=== PATIENT | male | born 1955 | race Caucasian/White ===

== ENCOUNTER 2022-08-25 16:02 | Observation (INO) | payer BC, MEDICARE ==
[2022-08-25] MEDS ORDERED: SODIUM CHLORIDE 0.9% 1,000 ML IV STA ×2 (16:38→19:53)
[2022-08-25] MEDS ORDERED: KETOROLAC 15 MG/ML 1 ML VIAL IVP STA (16:42)
[2022-08-25 18:00] LABS: Basophils % (A) 0 %; Eosinophils # (A) 0.1 k/uL (0-0.7); Eosinophils % (A) 1 %; HCT 45.7 % (39.0-53.0); HGB 15.4 gm/dL (13.0-17.5); Lymphocytes # (A) 1.2 k/uL (1.0-4.8); Lymphocytes % (A) 13 %; MCH 29.9 pg (25.0-35.0); MCHC 33.8 g/dL (31.0-37.0); MCV 88.7 fL (80.0-100.0); Monocytes # (A) 0.6 k/uL (0-1.0); Monocytes % (A) 7 %; Neutrophils # (A) 7.1 k/uL (1.3-7.7); Neutrophils % (A) 77 %; Platelet Count 183 k/uL (150-450); RBC 5.16 m/uL (4.30-5.90); RDW 12.4 % (11.5-15.5); WBC 9.2 k/uL (3.8-10.6)
[2022-08-25 18:14] LABS: Albumin 4.2 g/dL (3.5-5.0); Calcium 8.9 mg/dL (8.4-10.2); Potassium 4.3 mmol/L (3.5-5.1); Total Bilirubin 0.8 mg/dL (0.2-1.3); Total Protein 6.9 g/dL (6.3-8.2)
[2022-08-25 18:22] LABS: Appearance,Urine Clear (Clear); Bilirubin,Urine Negative (Negative); Blood,Urine Negative (Negative); Color,Urine Light Yellow; Glucose,Urine (UA) Negative (Negative); Ketones,Urine Negative (Negative); Leukocyte Esterase,Urine Negative (Negative); Nitrite,Urine Negative (Negative); PH, Urine 5.5 (5.0-8.0); Protein,Urine Negative (Negative); Specific Gravity,Urine 1.015 (1.001-1.035); Urobilinogen,Urine <2.0 mg/dL (<2.0)
--- NOTE | 2022-08-25 18:52 | CT ---
EXAMINATION TYPE: CT abdomen pelvis wo con CT DLP: 638.3 mGycm, Automated exposure control for dose reduction was used. DATE OF EXAM: 08/25/2022 6:06 PM COMPARISON: None CLINICAL INDICATION:Male, 67 years old with history of right flank pain; right side abd pain TECHNIQUE: Axial CT of the abdomen and pelvis. Sagittal and coronal reformats were created on a [employer] workstation. Contrast used: None Oral contrast used: without Oral Contrast FINDINGS: LOWER CHEST: Unremarkable ABDOMEN LIVER: Unremarkable GALLBLADDER AND BILE DUCTS: Unremarkable. PANCREAS: Unremarkable. SPLEEN: Unremarkable. ADRENAL GLANDS: Unremarkable. KIDNEYS AND URETERS: Nonobstructing renal calculi bilaterally measuring 4 mm in the right and up to 5 mm on the left. No obstructive uropathy. PELVIS BLADDER: Unremarkable REPRODUCTIVE: Prostate gland is enlarged measuring up to 5.2 cm in transverse dimension ABDOMEN & PELVIS STOMACH AND BOWEL: No evidence of bowel obstruction. Appendix is dilated measuring up to 8 mm with ad jacent fat stranding. PERITONEUM/RETROPERITONEUM: No evidence of pneumoperitoneum or free fluid. VASCULATURE: No evidence of aortic aneurysm. MUSCULOSKELETAL: No acute osseous abnormalities, mild scoliosis changes of the spine. There is disc d egeneration changes throughout the spine. L2 vertebral body hemangioma. LYMPH NODES: No gross evidence for lymphadenopathy. SOFT TISSUE/ABDOMINAL WALL: Fat-containing umbilical hernia. Fat-containing bilateral inguinal hernia s left greater than right. IMPRESSION: 1. Acute uncomplicated appendicitis. No organizing fluid collection no evidence perforation. 2. Bilateral obstructing renal calculi. 3. Prostatomegaly correlate serum PSA. 4. Bilateral fat-containing inguinal hernias and affecting umbilical hernia.
[2022-08-25] MEDS ORDERED: PIPERACILLIN-TAZOBACTAM 3.375 GM in SODIUM CHLORIDE 0.9% 100 ML IVPB STA (18:56)
[2022-08-25] MEDS ORDERED: NALOXONE 0.4 MG/ML 1 ML VIAL IV PRN (19:29)
--- NOTE | 2022-08-25 21:23 | ED ---
Abdominal Pain HPI - General Chief Complaint: Abdominal Pain Stated Complaint: abd pain Time Seen by Provider: 08/25/22 16:36 Source: patient Mode of arrival: ambulatory Limitations: no limitations - History of Present Illness Initial Comments: Patient is a 67-year-old male was emergency department for abdominal pain. Patient reports a very mild pain in his right lower abdomen and right lower side which has intermittently been occurring today. He denies any nausea and vomiting. No fever or chills. No burning with urination, blood in the urine. Patient has history of hernia repair. - Related Data Home Medications Medication Instructions Recorded Confirmed Losartan Potassium 100 mg PO DAILY 08/25/22 08/25/22 Allergies Allergy/AdvReac Type Severity Reaction Status Date / Time No Known Allergies Allergy Verified 08/25/22 17:09 Review of Systems ROS Statement: Those systems with pertinent positive or pertinent negative responses have been documented in the HPI. ROS Other: All systems not noted in ROS Statement are negative. Past Medical History Past Medical History: No Reported History History of Any Multi-Drug Resistant Organisms: None Reported Past Surgical History: Hernia Repair Past Psychological History: No Psychological Hx Reported Smoking Status: Never smoker Past Alcohol Use History: Occasional Past Drug Use History: None Reported General Exam Limitations: no limitations Head exam: Present: atraumatic, normocephalic, normal inspection Eye exam: Present: normal appearance, PERRL, EOMI. Absent: scleral icterus, conjunctival injection, periorbital swelling ENT exam: Present: normal exam, mucous membranes moist Respiratory exam: Present: normal lung sounds bilaterally. Absent: respiratory distress, wheezes, rales, rhonchi, stridor Cardiovascular Exam: Present: regular rate, normal rhythm, normal heart sounds. Absent: systolic murmur, diastolic murmur, rubs, gallop, clicks GI/Abdominal exam: Present: soft, tenderness (mild RLQ), normal bowel sounds. Absent: distended, guarding, rebound, rigid Neurological exam: Present: alert, oriented X3, CN II-XII intact Psychiatric exam: Present: normal affect, normal mood Skin exam: Present: warm, dry, intact, normal color. Absent: rash Course Vital Signs 08/25/22 16:28 Temperature 99.0 F Pulse Rate 89 Respiratory 20 Rate Blood Pressure 132/80 O2 Sat by Pulse 98 Oximetry Medical Decision Making - Medical Decision Making Was pt. sent in by a medical professional or institution (KARLENE Hines, NEEDLE SETTER, urgent care, hospital, or jail...) When possible be specific @ -[No] Did you speak to anyone other than the patient for history (EMS, parent, family, police, friend...)? What history was obtained from this source @ -[No] Did you review nursing and triage notes (agree or disagree)? Why? @ -[I reviewed and agree with nursing and triage notes] Were old charts reviewed (outside hosp., previous admission, EMS record, old EKG, old radiological studies, urgent care reports/EKG's, jail records)? Report findings @ -[No old charts were reviewed] Differential Diagnosis (chest pain, altered mental status, abdominal pain women, abdominal pain men, vaginal bleeding, weakness, fever, dyspnea, syncope, headache, dizziness, GI bleed, back pain, seizure, CVA, palpatations, mental health)? @ -Differential Abdominal Pain Men: Appendicitis, cholecystitis, diverticulosis, ischemic bowel, pancreatitis, hepatitis, UTI, gastroenteritis, AAA, incarcerated hernia, bowel obstruction, constipation, inflammatory bowel, hepatitis, peptic ulcer disease, splenic infarction, perforated viscus, testicular torsion, this is not meant to be an all-inclusive list EKG interpreted by me (3pts min.). @ -[As above] X-rays interpreted by me (1pt min.). @ -[None done] CT interpreted by me (1pt min.). @ -Yes, CT shows acute appendicitis without abscess or perforation U/S interpreted by me (1pt. min.). @ -[None done] What testing was considered but not performed or refused? (CT, X-rays, U/S, labs)? Why? @ -[None] What meds were considered but not given or refused? Why? @ -[None] Did you discuss the management of the patient with other professionals (professionals i.e. KARLENE Hines, NEEDLE SETTER, lab, RT, psych nurse, secondary social studies teacher, pit recorder, teacher, senior escrow officer, gym manager)? Give summary @ -[No] Was smoking cessation discussed for >3mins.? @ -[No] Was critical care preformed (if so, how long)? @ -[No] Were there social determinants of health that impacted care today? How? (Homelessness, low income, unemployed, alcoholism, drug addiction, transportation, low edu. Level, literacy, decrease access to med. care, senior care, rehab)? @ -[No] Was there de-escalation of care discussed even if they declined (Discuss DNR or withdrawal of care, Hospice)? DNR status @ -[No] What co-morbidities impacted this encounter? (DM, HTN, Smoking, COPD, CAD, Cancer, CVA, ARF, Chemo, Hep., AIDS, mental health diagnosis, sleep apnea, morbid obesity)? @ -[None] Was patient admitted / discharged? Hospital course, mention meds given and route, prescriptions, significant lab abnormalities, going to OR and other pertinent info. @ -Patient presenting with right lower quadrant and right flank pain. Afebrile. No vomiting. Laboratory studies obtained. No leukocytosis. CT does show evidence of acute appendicitis without perforation or abscess. Patient started on IV Zosyn and he will be admitted to Dr. Ashton who accepts admission Undiagnosed new problem with uncertain prognosis? @ -[No] Drug Therapy requiring intensive monitoring for toxicity (Heparin, Nitro, Insulin, Cardizem)? @ -[No] Were any procedures done? @ -[No] Diagnosis/symptom? @ -Appendicitis Acute, or Chronic, or Acute on Chronic? @ -[Acute Uncomplicated (without systemic symptoms) or Complicated (systemic symptoms)? @ Uncomplicated Side effects of treatment? @ -[No] Exacerbation, Progression, or Severe Exacerbation? @ -[No] Poses a threat to life or bodily function? How? (Chest pain, USA, CA, pneumonia, PE, COPD, DKA, ARF, appy, cholecystitis, CVA, Diverticulitis, Homicidal, Suicidal, threat to staff... and all critical care pts) @ -[No] Dr. Quinones my attending - Lab Data Result diagrams: 08/25/22 17:35 08/25/22 17:35 Lab Results 08/25/22 08/25/22 08/25/22 Range/Units 17:35 17:35 17:35 WBC 9.2 (3.8-10.6) k/uL RBC 5.16 (4.30-5.90) m/uL Hgb 15.4 (13.0-17.5) gm/dL Hct 45.7 (39.0-53.0) % MCV 88.7 (80.0-100.0) fL MCH 29.9 (25.0-35.0) pg MCHC 33.8 (31.0-37.0) g/dL RDW 12.4 (11.5-15.5) % Plt Count 183 (150-450) k/uL MPV 7.0 Neutrophils % 77 % Lymphocytes % 13 % Monocytes % 7 % Eosinophils % 1 % Basophils % 0 % Neutrophils # 7.1 (1.3-7.7) k/uL Lymphocytes # 1.2 (1.0-4.8) k/uL Monocytes # 0.6 (0-1.0) k/uL Eosinophils # 0.1 (0-0.7) k/uL Basophils # 0.0 (0-0.2) k/uL Sodium 139 (137-145) mmol/L Potassium 4.3 (3.5-5.1) mmol/L Chloride 105 (98-107) mmol/L Carbon Dioxide 27 (22-30) mmol/L Anion Gap 7 mmol/L BUN 21 H (9-20) mg/dL Creatinine 1.27 H (0.66-1.25) mg/dL Est GFR (CKD-EPI)AfAm 67 (>60 ml/min/1.73 sqM) Est GFR (CKD-EPI)NonAf 58 (>60 ml/min/1.73 sqM) Glucose 109 H (74-99) mg/dL Plasma Lactic Acid Randy 0.9 (0.7-2.0) mmol/L Calcium 8.9 (8.4-10.2) mg/dL Total Bilirubin 0.8 (0.2-1.3) mg/dL AST 23 (17-59) U/L ALT 22 (4-49) U/L Alkaline Phosphatase 61 (38-126) U/L Total Protein 6.9 (6.3-8.2) g/dL Albumin 4.2 (3.5-5.0) g/dL Lipase 53 (23-300) U/L Urine Color Urine Appearance (Clear) Urine pH (5.0-8.0) Ur Specific [place] (1.001-1.035) Urine Protein (Negative) Urine Glucose (UA) (Negative) Urine Ketones (Negative) Urine Blood (Negative) Urine Nitrite (Negative) Urine Bilirubin (Negative) Urine Urobilinogen (<2.0) mg/dL Ur Leukocyte Esterase (Negative) 08/25/22 Range/Units 18:10 WBC (3.8-10.6) k/uL RBC (4.30-5.90) m/uL Hgb (13.0-17.5) gm/dL Hct (39.0-53.0) % MCV (80.0-100.0) fL MCH (25.0-35.0) pg MCHC (31.0-37.0) g/dL RDW (11.5-15.5) % Plt Count (150-450) k/uL MPV Neutrophils % % Lymphocytes % % Monocytes % % Eosinophils % % Basophils % % Neutrophils # (1.3-7.7) k/uL Lymphocytes # (1.0-4.8) k/uL Monocytes # (0-1.0) k/uL Eosinophils # (0-0.7) k/uL Basophils # (0-0.2) k/uL Sodium (137-145) mmol/L Potassium (3.5-5.1) mmol/L Chloride (98-107) mmol/L Carbon Dioxide (22-30) mmol/L Anion Gap mmol/L BUN (9-20) mg/dL Creatinine (0.66-1.25) mg/dL Est GFR (CKD-EPI)AfAm (>60 ml/min/1.73 sqM) Est GFR (CKD-EPI)NonAf (>60 ml/min/1.73 sqM) Glucose (74-99) mg/dL Plasma Lactic Acid Randy (0.7-2.0) mmol/L Calcium (8.4-10.2) mg/dL Total Bilirubin (0.2-1.3) mg/dL AST (17-59) U/L ALT (4-49) U/L Alkaline Phosphatase (38-126) U/L Total Protein (6.3-8.2) g/dL Albumin (3.5-5.0) g/dL Lipase (23-300) U/L Urine Color Light Yellow Urine Appearance Clear (Clear) Urine pH 5.5 (5.0-8.0) Ur Specific [place] 1.015 (1.001-1.035) Urine Protein Negative (Negative) Urine Glucose (UA) Negative (Negative) Urine Ketones Negative (Negative) Urine Blood Negative (Negative) Urine Nitrite Negative (Negative) Urine Bilirubin Negative (Negative) Urine Urobilinogen <2.0 (<2.0) mg/dL Ur Leukocyte Esterase Negative (Negative) Disposition Clinical Impression: Appendicitis Disposition: ADMITTED IP TO THIS HOSP Condition: Stable
[2022-08-25] MEDS: MORPHINE SULFATE 2 MG/ML SYRINGE IVP PRN (21:30)
[2022-08-26] MEDS: PIPERACILLIN-TAZOBACTAM 3.375 GM in SODIUM CHLORIDE 0.9% 100 ML IVPB SCH ×3 (08:30→23:46)
[2022-08-26] MEDS: LOSARTAN 50 MG TAB PO SCH (08:30)
[2022-08-26 09:15] LABS: HCT 40.4 % (39.0-53.0); HGB 14.2 gm/dL (13.0-17.5); MCH 30.9 pg (25.0-35.0); MCHC 35.2 g/dL (31.0-37.0); MCV 87.7 fL (80.0-100.0); Mean Platelet Volume 7.3; Platelet Count 147 k/uL (150-450); RBC 4.61 m/uL (4.30-5.90); RDW 12.7 % (11.5-15.5)
[2022-08-26 09:22] LABS: Partial Thromboplastin Time 26.5 sec (22.0-30.0); Prothrombin Time 10.2 sec (9.0-12.0)
[2022-08-26 09:48] LABS: African American GFR (CKD) 80 (>60 ml/min/1.73 sqM); Anion Gap 3 mmol/L; Blood Urea Nitrogen 18 mg/dL (9-20); Calcium 8.2 mg/dL (8.4-10.2); Carbon Dioxide 25 mmol/L (22-30); Chloride 110 mmol/L (98-107); Glucose 87 mg/dL (74-99); Non-African American GFR(CKD) 69 (>60 ml/min/1.73 sqM); Potassium 4.1 mmol/L (3.5-5.1); Sodium 138 mmol/L (137-145)
--- NOTE | 2022-08-26 11:23 | P.GSHP ---
History of Present Illness H&P Date: 08/26/22 Chief Complaint: acute appendicitis Working yesterday & developed sudden onset abdominal pain. Progressively worsened & started to localize to the RLQ. CT done & revealed acute appendicitis. No leukocytosis. On exam this morning, continues to have tenderness to RLQ but pain well managed overnight. - Constitutional Constitutional: Reports as per HPI - EENT Ears: deny: decreased hearing Ears, nose, mouth and throat: Reports as per HPI - Cardiovascular Comment: sees Cardiology Cardiovascular: Reports as per HPI, Reports high blood pressure, Denies chest pain, Denies irregular heart beat - Respiratory Comment: former smoker, has 5 pack a day history; quit 2 years ago Respiratory: Reports as per HPI - Gastrointestinal Gastrointestinal: Reports as per HPI, Reports abdominal pain (RLQ) - Genitourinary (Male) Genitourinary: Reports as per HPI - Musculoskeletal Comment: chronic knee pain; right knee replacement x2, left knee replacement x1 Musculoskeletal: Reports as per HPI, Reports arm numbness/tingling, Reports leg numbness/tingling - Integumentary Integumentary: Reports as per HPI - Neurological Neurological: Reports as per HPI - Psychiatric Psychiatric: Reports as per HPI - Endocrine Endocrine: Reports as per HPI, Denies high blood sugars - Hematologic/Lymphatic Hematologic/Lymphatic: Reports as per HPI - Allergic/Immunologic Allergic/Immunologic: Reports as per HPI Past Medical History Past Medical History: Hypertension History of Any Multi-Drug Resistant Organisms: None Reported Past Surgical History: Hernia Repair Additional Past Surgical History / Comment(s): vasectomy Past Anesthesia/Blood Transfusion Reactions: No Reported Reaction Past Psychological History: No Psychological Hx Reported Smoking Status: Never smoker Past Alcohol Use History: Occasional Past Drug Use History: None Reported Medications and Allergies Home Medications Medication Instructions Recorded Confirmed Type Losartan Potassium 100 mg PO DAILY 08/25/22 08/25/22 History Allergies Allergy/AdvReac Type Severity Reaction Status Date / Time No Known Allergies Allergy Verified 08/25/22 17:09 Surgical - Exam Vital Signs Temp Pulse Resp BP Pulse Ox 99.0 F 89 20 132/80 98 08/25/22 16:28 08/25/22 16:28 08/25/22 16:28 08/25/22 16:28 08/25/22 16:28 - General well developed, well nourished, no distress - Eyes no icteric - ENT normal mucosa, no decreased hearing - Neck supple - Respiratory normal expansion, normal respiratory effort, clear to auscultation - Cardiovascular Rhythm: regular Abnormal Heart Sounds: no systolic murmur, no diastolic murmur - Abdomen Abdomen: soft, tender (focal TTP to RLQ; no diffuse peritonitis), no guarding, no rigid, no rebound, no distended - Integumentary no rash - Neurologic no gross deficits - Musculoskeletal no LE edema, deformities - Psychiatric alert & oriented, normal affect; appropriate insight & judgment Results - Labs 08/26/22 08:41 08/26/22 08:41 Abnormal Lab Results - Last 24 Hours (Table) 08/25/22 Range/Units 17:35 BUN 21 H (9-20) mg/dL Creatinine 1.27 H (0.66-1.25) mg/dL Glucose 109 H (74-99) mg/dL Diabetes panel 08/25/22 Range/Units 17:35 Sodium 139 (137-145) mmol/L Potassium 4.3 (3.5-5.1) mmol/L Chloride 105 (98-107) mmol/L Carbon Dioxide 27 (22-30) mmol/L BUN 21 H (9-20) mg/dL Creatinine 1.27 H (0.66-1.25) mg/dL Glucose 109 H (74-99) mg/dL Calcium 8.9 (8.4-10.2) mg/dL AST 23 (17-59) U/L ALT 22 (4-49) U/L Alkaline Phosphatase 61 (38-126) U/L Total Protein 6.9 (6.3-8.2) g/dL Albumin 4.2 (3.5-5.0) g/dL Calcium panel 08/25/22 Range/Units 17:35 Calcium 8.9 (8.4-10.2) mg/dL Albumin 4.2 (3.5-5.0) g/dL Pituitary panel 08/25/22 Range/Units 17:35 Sodium 139 (137-145) mmol/L Potassium 4.3 (3.5-5.1) mmol/L Chloride 105 (98-107) mmol/L Carbon Dioxide 27 (22-30) mmol/L BUN 21 H (9-20) mg/dL Creatinine 1.27 H (0.66-1.25) mg/dL Glucose 109 H (74-99) mg/dL Calcium 8.9 (8.4-10.2) mg/dL Adrenal panel 08/25/22 Range/Units 17:35 Sodium 139 (137-145) mmol/L Potassium 4.3 (3.5-5.1) mmol/L Chloride 105 (98-107) mmol/L Carbon Dioxide 27 (22-30) mmol/L BUN 21 H (9-20) mg/dL Creatinine 1.27 H (0.66-1.25) mg/dL Glucose 109 H (74-99) mg/dL Calcium 8.9 (8.4-10.2) mg/dL Total Bilirubin 0.8 (0.2-1.3) mg/dL AST 23 (17-59) U/L ALT 22 (4-49) U/L Alkaline Phosphatase 61 (38-126) U/L Total Protein 6.9 (6.3-8.2) g/dL Albumin 4.2 (3.5-5.0) g/dL - Imaging CT scan - abdomen: report reviewed, image reviewed CT scan - pelvis: report reviewed, image reviewed Assessment and Plan Assessment: abdominal pain 2/2 acute appendicitis Hx HTN Plan: to OR for laparoscopic appendectomy, possible open likely clears post-op with anticipated discharge in next 24 hours Time with Patient: Less than 30
[2022-08-26] MEDS ORDERED: IV FLUID CONTINUATION 300 ML IV ONE (11:56)
[2022-08-26] MEDS ORDERED: PROPOFOL 10 MG/ML 20 ML VIAL IV ONE (12:30)
[2022-08-26] MEDS ORDERED: NEOSTIGMINE 1 MG/ML 10 ML VIAL ONE (12:30)
[2022-08-26] MEDS ORDERED: ROCURONIUM 10 MG/ML (5 ML VIAL) IV ONE (12:30)
[2022-08-26] MEDS ORDERED: LIDOCAINE 2% INJ 20 MG/ML (2 ML VIAL) ONE (12:30)
[2022-08-26] MEDS ORDERED: fentaNYL (PF) 50 MCG/ML 2 ML AMP ONE (12:30)
[2022-08-26] MEDS ORDERED: GLYCOPYRROLATE 0.2 MG/ML 2 ML VIAL ONE (12:30)
[2022-08-26] MEDS ORDERED: MIDAZOLAM 2 MG/2 ML VIAL ONE (12:30)
[2022-08-26] MEDS ORDERED: PHENYLEPHRINE-0.9% NACL SYG 1,000 MCG/10 ML SYRINGE ONE (12:30)
[2022-08-26] MEDS ORDERED: SUCCINYLCHOLINE CHLORIDE 200 MG/10 ML VIAL IV ONE (12:30)
[2022-08-26] MEDS ORDERED: BUPIVACAIN-EPI 0.25%-1:200,000 30 ML VIAL SQ ONE ×2 (13:04)
[2022-08-26] MEDS: SODIUM CHLORIDE 0.9% 1,000 ML IV SCH ×2 (13:31→17:55)
--- NOTE | 2022-08-26 14:18 | P.OP ---
Date of Procedure: 08/26/22 Preoperative Diagnosis: acute appendicitis Postoperative Diagnosis: acute appendicitis Procedure(s) Performed: laparoscopic appendectomy Anesthesia: GETA Surgeon: Lo Ashton Estimated Blood Loss (ml): 10 Pathology: other (appendix) Condition: stable Disposition: PACU Indications for Procedure: acute appendicitis noted on CT Operative Findings: Acutely inflamed appendix with adherent to the cecum with mesoappendix. Isolated & stapled at the base of the appendix/cecum. No perforation or abscess cavity. Appendix with some beginning necrotic changes but no overt perforation or gangrene. Description of Procedure: See complete dictation for full surgical details.
[2022-08-26] MEDS ORDERED: IBUPROFEN 600 MG TAB PO PRN (14:21)
[2022-08-26] MEDS ORDERED: HYDROcodone/APAP 5-325MG 1 EACH TAB PO PRN (14:21)
[2022-08-26] MEDS: HEPARIN SODIUM,PORCINE/PF 5,000 UNIT/0.5 ML SYRINGE SQ SCH ×2 (17:49→23:47)
[2022-08-26] MEDS: MORPHINE SULFATE 2 MG/ML SYRINGE IVP PRN ×2 (17:50→21:05)
--- NOTE | 2022-08-26 22:37 | P.CONS ---
History of Present Illness - Reason for Consult Consult date: 08/26/22 Medical management - Chief Complaint Abdominal pain - History of Present Illness Patient is a 67-year-old male with a known history of hypertension presents today with complaints of abdominal pain. Patient states that he started having right lower quadrant abdominal pain intermittently for the past 2 days. Otherwise denies any complaints of nausea or vomiting or diarrhea. No fever no chills. Patient searched online and came to ER for possible appendicitis. CT of the abdomen pelvis done in the ER showed acute uncomplicated appendicitis. No organizing fluid collection no evidence of perforation. Bilateral obstructing renal calculi. Prostamegaly correlate for serum PSA Bilateral fat-containing inguinal hernias and affecting umbilical hernia. Laboratory showed WBC 9.2 hemoglobin 15.4 and platelets 183 Sodium 139 potassium 4.3 chloride 105 bicarb is 27 BUN 21 and creatinine 1.27 and blood sugar is 109 and lactic acid 0.9 urinalysis negative for infection Review of Systems Constitutional: Patient denies any fever or chills . no Generalized weakness. Abdomen: Patient denied any nausea or vomiting . RLQ abd. pain Cardiovascular: Patient denies any chest pain or short of breath no palpitations. Respiratory: patient denied any cough . no sputum production. No shortness of breath Neurologic: Patient denied any numbness or tingling headache. Musculoskeletal: Patient denies any complaints of joint swelling or deformity. Skin: Negative Psychiatric: Negative Endocrine: No heat or cold intolerance. No recent weight gain. Genitourinary: No dysuria or hematuria. All other 14 point ROS negative except the above Past Medical History Past Medical History: Hypertension History of Any Multi-Drug Resistant Organisms: None Reported Past Surgical History: Hernia Repair Additional Past Surgical History / Comment(s): vasectomy Past Anesthesia/Blood Transfusion Reactions: No Reported Reaction Past Psychological History: No Psychological Hx Reported Smoking Status: Never smoker Past Alcohol Use History: Occasional Past Drug Use History: None Reported Medications and Allergies Home Medications Medication Instructions Recorded Confirmed Type Losartan Potassium 100 mg PO DAILY 08/25/22 08/25/22 History Allergies Allergy/AdvReac Type Severity Reaction Status Date / Time No Known Allergies Allergy Verified 08/25/22 17:09 Physical Exam Vitals: Vital Signs Temp Pulse Pulse Resp BP BP Pulse Ox 08/26/22 07:50 99.1 F 76 18 144/75 95 08/26/22 02:11 98.8 F 76 16 129/69 93 L 04/14/23 22:15 98.1 F 75 16 154/79 93 L 08/25/22 21:31 78 122/92 95 08/25/22 16:28 99.0 F 89 20 132/80 98 Intake and Output 08/25/22 08/26/22 08/26/22 22:59 06:59 14:59 Intake Total 0 Balance 0 Intake: Oral 0 Other: Voiding Method Toilet Weight 79.5 kg PHYSICAL EXAMINATION: Patient is lying in the bed comfortably, no acute distress, awake alert and oriented.. HEENT: Normocephalic. Neck is supple. Pupils reactive. Nostrils clear. Oral cavity is moist. Neck reveals no JVD, carotid bruits, or thyromegaly. CHEST EXAMINATION: Trachea is central. Symmetrical expansion. Lung caldera clear to auscultation and percussion. CARDIAC: Normal S1, S2 with no gallops. No murmurs ABDOMEN: Soft. Bowel sounds present. mild RLQ tender. No organomegaly. No abdominal bruits. Extremities: reveal no edema. No clubbing or cyanosis Neurologically awake, alert, oriented x3 with well-coordinated movements. No focal deficits noted Skin: No rash or skin lesions. Psychiatric: Coperative. Nonsuicidal, Musculoskeletal: No joint swelling or deformity. Normal range of motion. Results CBC & Chem 7: 08/26/22 08:41 08/26/22 08:41 Labs: Abnormal Lab Results - Last 24 Hours (Table) 08/25/22 08/26/22 08/26/22 Range/Units 17:35 08:41 08:41 Plt Count 147 L (150-450) k/uL Chloride 110 H (98-107) mmol/L BUN 21 H (9-20) mg/dL Creatinine 1.27 H (0.66-1.25) mg/dL Glucose 109 H (74-99) mg/dL Calcium 8.2 L (8.4-10.2) mg/dL Assessment and Plan Assessment: Acute uncomplicated appendicitis Abdominal pain secondary to above Bilateral obstructing renal calculi. Outpatient urology follow-up. Inguinal hernias affecting umbilical area. Hypertension Acute kidney injury likely prerenal improving. GI and DVT prophylaxis Plan: Patient will be continued on IV hydration continue pain management. Empiric antibiotics in the form of Zosyn. General surgery is planning for appendectomy today. Follow-up CBC and BMP tomorrow. Follow closely and further recommendations based on the clinical course. Thank you for your consult. Time with Patient: Greater than 30
[2022-08-27] MEDS: MORPHINE SULFATE 2 MG/ML SYRINGE IVP PRN (03:09)
[2022-08-27 03:12] VITALS: PULSE 79
[2022-08-27 08:07] VITALS: BP 137/82; RESP 18; TEMP 98.8
[2022-08-27] MEDS: HEPARIN SODIUM,PORCINE/PF 5,000 UNIT/0.5 ML SYRINGE SQ SCH (08:21)
[2022-08-27] MEDS: LOSARTAN 50 MG TAB PO SCH (08:21)
[2022-08-27] MEDS: PIPERACILLIN-TAZOBACTAM 3.375 GM in SODIUM CHLORIDE 0.9% 100 ML IVPB SCH (08:26)
[2022-08-27 08:49] LABS: Basophils % (A) 0 %; Eosinophils # (A) 0.1 k/uL (0-0.7); Eosinophils % (A) 1 %; HCT 41.7 % (39.0-53.0); HGB 13.7 gm/dL (13.0-17.5); Lymphocytes # (A) 1.4 k/uL (1.0-4.8); Lymphocytes % (A) 20 %; MCH 29.5 pg (25.0-35.0); MCHC 32.8 g/dL (31.0-37.0); MCV 89.8 fL (80.0-100.0); Mean Platelet Volume 7.3; Monocytes # (A) 0.5 k/uL (0-1.0); Monocytes % (A) 7 %; Neutrophils # (A) 4.9 k/uL (1.3-7.7); Neutrophils % (A) 71 %; Platelet Count 175 k/uL (150-450); RBC 4.65 m/uL (4.30-5.90); RDW 12.3 % (11.5-15.5)
[2022-08-27 09:04] LABS: African American GFR (CKD) 76 (>60 ml/min/1.73 sqM); Anion Gap 7 mmol/L; Blood Urea Nitrogen 12 mg/dL (9-20); Carbon Dioxide 26 mmol/L (22-30); Chloride 103 mmol/L (98-107); Glucose 78 mg/dL (74-99); Non-African American GFR(CKD) 65 (>60 ml/min/1.73 sqM); Potassium 4.1 mmol/L (3.5-5.1); Sodium 136 mmol/L (137-145)
--- NOTE | 2022-08-27 09:54 | P.DS ---
Providers Date of admission: 08/25/22 19:31 Expected date of discharge: 08/27/22 Attending physician: Lo Ashton DO Consults: 08/25/22 19:29 Consult Physician Routine Consulting Provider: Caesar Carter Consult Reason/Comments: medical management Do you want consulting provider notified?: Yes Primary care physician: Ronaldo Ley Hospital Course: Working yesterday & developed sudden onset abdominal pain. Progressively worsened & started to localize to the RLQ. CT done & revealed acute appendicitis. No leukocytosis. Taken to the OR for laparoscopic appendectomy for acute uncomplicated appendicitis. Did well post operatively. Tolerated diet. Urinating. No tachycardia. No leukocytosis. Ambulating. Stable for discharge home. Assessment: NAD, non toxic, resting comfortably in bed Non labored breathing Reg rate Abdomen soft, ND/NT; incisions with dermabond & healing well, without signs of infection No LE edema Procedures: laparoscopic appendectomy 08/26 Patient Condition at Discharge: Stable Plan - Discharge Summary Discharge Rx Participant: No New Discharge Prescriptions: New Ibuprofen [Motrin] 600 mg PO TID PRN tab PRN Reason: Mild Pain Or Fever >= 100.5 HYDROcodone/APAP 5-325MG [[place] 5-325] 1 each PO Q6HR PRN #9 tab PRN Reason: Moderate To Severe Pain (4-10) Continue Losartan Potassium 100 mg PO DAILY Discharge Medication List Losartan Potassium 100 mg PO DAILY 08/25/22 [History] HYDROcodone/APAP 5-325MG [[place] 5-325] 1 each PO Q6HR PRN #9 tab 08/27/22 [Rx] Ibuprofen [Motrin] 600 mg PO TID PRN tab 08/27/22 [Rx] Follow up Appointment(s)/Referral(s): Ronaldo Ley DO [Primary Care Provider] - 1 Week Lo Ashton DO [Doctor of Osteopathic Medicine] - 2 Weeks Patient Instructions/Handouts: Laparoscopic Appendectomy (DC), Laparoscopic Appendectomy (GEN) Activity/Diet/Wound Care/Special Instructions: OK to resume regular diet. No heavy lifting >10 lbs for next 2 weeks. You have dissolvable suture & skin glue. No further dressings needed. OK to shower; let water & soap run over incision, pat dry. No driving while taking narcotic pain pills. OK to take over the counter tylenol & motrin for pain. OK to alternate motrin with tylenol & norco pain pills. (EX: You can take motrin then 3 hours later a norco or tylenol.) Do not take tylenol with norco pain pills. Take over the counter stool softener for next few days, and while taking pain pills; both will constipate you. Discharge Disposition: HOME SELF-CARE
--- NOTE | 2022-08-29 20:10 | P.OP ---
Date of Procedure: 08/26/22 Preoperative Diagnosis: acute appendicitis Postoperative Diagnosis: acute appendicitis Procedure(s) Performed: laparoscopic appendectomy Anesthesia: JOA Surgeon: Lo Ashton Estimated Blood Loss (ml): 10 Pathology: other (appendix) Condition: stable Disposition: PACU Indications for Procedure: acute appendicitis as noted on CT Operative Findings: Acutely inflamed appendix with adherent to the cecum with mesoappendix. Isolated & stapled at the base of the appendix/cecum. No perforation or abscess cavity. Appendix with some beginning necrotic changes but no overt perforation or gangrene. Description of Procedure: Parminder was taken to the operative suite where he was placed in a supine position. General anesthesia was administered by the anesthesia team; his heart rate, blood pressure & pulse oximetry was monitored throughout the entire case.He was on scheduled antibiotics on the floor. Abdomen was prepped & draped in standard sterile fashion. An infraumbilical incision was made & dissected down to level of anterior abdominal fascia. Entrance into abdominal cavity was gained using the open modified Juan Pablo technique. A 12 mm port was placed under direct supervision and abdomen was insufflated without issues. On inspection, there was no injury noted from initial trochar placement. On further inspection, there was noted to be mild inflammatory changes in the right lower quadrant with no purulent fluid noted in the pelvis. Two additional 5 mm ports were placed under direct visualization: one in the left lower quadrant, one in the suprapubic region. Care was taken to avoid injury to the bladder & epigastric vessels. The tinea of the colon was followed & the appendix was identified. It was noted to be slightly retrocecal & adherent colon & fatty appendages. Meticulous blunt dissection was carried out to mobilize the appendix. Once appendix was mobilized, it was grasped & elevated; window was made at the appendiceal base. The cecum appeared healthy & without signs of inflammation. The appendix was then stapled & transected at the base; taking care to visualize & avoid the terminal ileum. There was no feculent contamination, no purulent drainage, no signs of perforation; appendix appeared acutely inflamed with some beginning necrotic chnages but no overt perforation or gangrene. The mesoappendix was taken down using the LigaSure device. Appendix was removed via an EndoCatch bag & send for pathology. Trocars were removed under direct visualization & abdomen was evacuated of pneumoperitoneum. Fascia of infraumbilical port site was closed using 0-Vicryl suture in interrupted fashion. Skin was closed using 3-0 Monocryl subcuticular sutures. Port sites were infiltrated with local anesthetic & dressed with Dermabond. Counts were correct. Parminder tolerated the procedure well & was extubated without incident. He was transferred from the operating room to the recovery room in a stable condition. Upon stable recovery, he will return to the floor for post-op management. OK for clears. Anticipate discharge in next 24-48 hours.
== END 2022-08-27 13:12 | disposition home or self-care (01) ==
LOC: EC 16:02 → 5NMEDONC 19:31 → INTOOBSV 19:31 → 5NMEDONC 20:58 → UNDODISIN 08-27 13:12
PROVIDERS: ADMIT Surgery; ATTEND Surgery
PROC: 0DTJ4ZZ Resection of Appendix, Percutaneous Endoscopic Approach (ICD-10-PCS; principal; 2022-08-26 10:30)
DX: K35.80 Unspecified acute appendicitis (principal); N17.9 Acute kidney failure, unspecified; I10 Essential (primary) hypertension; K40.20 Bilateral inguinal hernia, without obstruction or gangrene, not specified as recurrent; K42.9 Umbilical hernia without obstruction or gangrene; N20.0 Calculus of kidney; N40.0 Benign prostatic hyperplasia without lower urinary tract symptoms; Z79.899 Other long term (current) drug therapy; Z98.52 Vasectomy status; Z87.19 Personal history of other diseases of the digestive system; Z96.653 Presence of artificial knee joint, bilateral; Z98.890 Other specified postprocedural states
CPT/HCPCS: 44970; 96361; 96374; 96375; 99285; 36415; 88304; 80053; 80048 ×2; 83605; 83690; 85025 ×2; 85027; 85610; 85730; 81003; 87040; 74176; G0378 ×3; J2543 ×2; J2250; J0330; J2710; J3010; J2270 ×3; J1885; J2370; J2704; J1644 ×2; J2001; 96365

== ENCOUNTER 2023-12-20 23:07 | Emergency (ER) | payer MEDICARE | END 2023-12-21 00:21 | disposition home or self-care (01) | LOC: EC 23:07 | DX: R23.8 Other skin changes (principal) | CPT/HCPCS: 99282 ==